=== PATIENT | male | born 1950 | race Caucasian/White ===

== ENCOUNTER 2020-07-02 16:55 | Emergency (ER) | payer BC, MEDICARE ==
[2020-07-02 19:05] LABS: BLOOD UREA NITROGEN,BUN 19 mg/dL (7.0-18.0); CARBON DIOXIDE,CO2 24.2 mmol/L (21.0-32.0); CHLORIDE,CL 104 mmol/L (98-107); GLUCOSE RANDOM 166 mg/dL (74-106); POTASSIUM,K 4.1 mmol/L (3.5-5.1); SODIUM,NA 139 mmol/L (136-148)
--- NOTE | 2020-07-02 20:08 | EDM.PDOC ---
ED HPI GENERAL MEDICAL PROBLEM - General Chief Complaint: Skin Complaint Stated Complaint: LEFT NECK INFECTION Time Seen by Provider: 07/02/20 16:57 Source of Information: Reports: Patient History Limitations: Reports: No Limitations - History of Present Illness INITIAL COMMENTS - FREE TEXT/NARRATIVE: HISTORY AND PHYSICAL: History of present illness: Patient is a 70-year-old male who presents to the ED today as his primary care provider told him to come to the emergency room for further evaluation after a CT scan of his neck. Patient states 8 days ago he had a carotid endarterectomy on the left done at [facility] by Dr. Cain Ledbetter, vascular surgeon. Patient states that he went to his primary care provider today for an incision evaluation following the surgery. Patient states that his primary care provider felt the incision was more swollen than it should be so did some basic lab work at the clinic and then sent him to our facility to recent see the CT scan of his neck. Patient states that a few hours after the scan was completed, his primary care provider called him back stating he needed to come to the emergency room for further evaluation. Patient states that following the surgery, he has not had any issues with the side of his neck and did not realize that the swelling was unusual. Patient denies any fevers, increased pain of the area, increased swelling of the area, redness, or drainage from the incision site. Patient states that he thought he was healing appropriately until he went to his appointment with his primary care provider today. Patient was told that he has a concern for an infection in his neck so came here for further evaluation. Patient denies any other symptoms or concerns. Patient denies fever, chills, chest pain, shortness of breath, or cough. Denies headache, neck stiff ness, change in vision, syncope, or near syncope. Denies nausea, vomiting, abdominal pain, diarrhea, constipation, or dysuria. Has not noted any blood in urine or stool. Patient has been eating and drinking appropriately. Review of systems: As per history of present illness and below otherwise all systems reviewed and negative. Past medical history: As per history of present illness and as reviewed below otherwise noncontributory. Surgical history: As per history of present illness and as reviewed below otherwise noncontributory. Social history: See social history for further information Family history: As per history of present illness and as reviewed below otherwise noncontributory. Physical exam: General: Patient is alert, oriented, and in no acute distress. Patient sitting comfortably on exam table. HEENT: There is a large incision on the left lateral neck that is well-healing without erythema, drainage, increased temperature, or pain to palpation. Incision is consistent with recent surgical history and appears to be healing well. Underlying the incision is an area of moderate edema which is nontender to palpation. Otherwise, atraumatic, normocephalic, pupils equal and reactive bilaterally, negative for conjunctival pallor or scleral icterus, mucous membranes moist, TMs normal bilaterally, throat clear, neck supple, nontender, trachea midline. No drooling or trismus noted. No meningeal signs. No hot potato voice noted. Lungs: Clear to auscultation, breath sounds equal bilaterally, chest nontender. Heart: S1S2, regular rate and rhythm without overt murmur Abdomen: Soft, nondistended, nontender. Negative for masses or hepatosplenomegaly. Negative for costovertebral tenderness. Pelvis: Stable nontender. Genitourinary: Deferred. Rectal: Deferred. Skin: Intact, warm, dry. No lesions or rashes noted. Extremities: Atraumatic, negative for cords or calf pain. Neurovascular unremarkable. Neuro: Awake, alert, oriented. Cranial nerves II through XII unremarkable. Cerebellum unremarkable. Motor and sensory unremarkable throughout. Exam nonfocal. Notes: Patient did have a Ang CT that was ordered/performed by his primary care provider, Dr. Perez today. This was performed at our facility today so is able to be accessed for full report. The Ang CT neck shows status post recent left carotid endarterectomy with widely patent graft. Within the subcutaneous tissue overlying the endarterectomy site, anterior to the left sternocleidomastoid muscle, there is a 5 cm x 3 cm x 2 cm fluid collection with foci of gas that is concerning for an early abscess. I did call and speak to the vascular surgeon on-call for [facility], Arcelia Chris, and thoroughly discussed patient's case. She has personally reviewed patient's CT scans of his neck and lab work and states that she does not feel that this is a developing abscess and believes it to be a hematoma. She states that she will be talking with patient's vascular surgeon, Dr. Ledbetter tomorrow morning, but does not feel that patient needs to be admitted or transferred at this time. She states that their clinic will call patient Sunday morning for reevaluation of his symptoms and follow-up as needed. Voices understanding and is agreeable to plan of care. Denies any further questions or concerns at this time. Diagnostics: CBC, CMP Therapeutics: None Prescription: None Impression: Post op hematoma, day 8 Plan: 1. You can take Tylenol as directed for pain and discomfort. 2. Follow-up with your vascular surgeon as discussed. They will be calling you Sunday for additional follow-up. 3. Return to the ED as needed and as discussed. Definitive disposition and diagnosis as appropriate pending reevaluation and rev iew of above. - Related Data Allergies Allergy/AdvReac Type Severity Reaction Status Date / Time No Known Allergies Allergy Verified 07/02/20 17:45 Home Meds: Home Meds Clopidogrel [Plavix] 75 mg PO DAILY 07/02/20 [History] Isosorbide Mononitrate [Imdur] 60 mg PO BID 07/02/20 [History] Krill Oil/[place]-3/Dha/Epa [[place]-3 Krill Oil Softgel] 500 mg PO DAILY 07/02/20 [History] Metoprolol Tartrate [Lopressor] 50 mg PO Q12HR 07/02/20 [History] Pantoprazole Sodium [Protonix] 20 mg PO DAILY 07/02/20 [History] Prazosin HCl [Prazosin] 2 mg PO BEDTIME 07/02/20 [History] Tiotropium [place] [Spiriva Respimat] 2 puff INH DAILY 07/02/20 [History] amLODIPine [Norvasc] 5 mg PO BID 07/02/20 [History] atorvaSTATin [Lipitor] 80 mg PO BEDTIME 07/02/20 [History] metFORMIN [Glucophage] 1,000 mg PO BIDMEALS 07/02/20 [History] traZODone HCl [Trazodone HCl] 50 mg PO BEDTIME PRN 07/02/20 [History] Past Medical History HEENT History: Reports: Hard of Hearing, Impaired Vision Cardiovascular History: Reports: High Cholesterol, Hypertension, Stents, Other (See Below) Other Cardiovascular History: 5 way bypass. Respiratory History: Reports: COPD Gastrointestinal History: Reports: GERD Psychiatric History: Reports: Anxiety, Depression Endocrine/Metabolic History: Reports: Diabetes, Type II, Obesity/BMI 30+ - Infectious Disease History Infectious Disease History: Reports: Chicken Pox - Past Surgical History HEENT Surgical History: Reports: None Cardiovascular Surgical History: Reports: None Respiratory Surgical History: Reports: None GI Surgical History: Reports: None Endocrine Surgical History: Reports: None Social & Family History - Family History Family Medical History: No Pertinent Family History - Tobacco Use Tobacco Use Status *Q: Former Tobacco User Used Tobacco, but Quit: Yes Month/Year Tobacco Last Used: 30 years ago - Caffeine Use Caffeine Use: Reports: None - Recreational Drug Use Recreational Drug Use: No ED ROS GENERAL - Review of Systems Review Of Systems: Comprehensive ROS is negative, except as noted in HPI. ED EXAM, SKIN/RASH Exam: See Below (see dictation) Course - Vital Signs Last Recorded V/S: Last Vital Signs Temp 99 F 07/02/20 17:41 Pulse 75 07/02/20 17:41 Resp 16 07/02/20 17:41 BP 159/76 H 07/02/20 17:41 Pulse Ox 98 07/02/20 17:41 - Orders/Labs/Meds Labs: Laboratory Tests 07/02/20 07/02/20 Range/Units 18:40 18:40 WBC 6.25 (4.0-11.0) K/uL RBC 4.49 L (4.50-5.90) M/uL Hgb 12.0 L (13.0-17.0) g/dL Hct 38.1 (38.0-50.0) % MCV 84.9 (80.0-98.0) fL MCH 26.7 L (27.0-32.0) pg MCHC 31.5 (31.0-37.0) g/dL RDW Std Deviation 46.1 (28.0-62.0) fl RDW Coeff of Rasheed 15 (11.0-15.0) % Plt Count 169 (150-400) K/uL MPV 10.60 (7.40-12.00) fL Neut % (Auto) 59.5 (48.0-80.0) % Lymph % (Auto) 25.3 (16.0-40.0) % [place] % (Auto) 13.1 (0.0-15.0) % Eos % (Auto) 1.8 (0.0-7.0) % Baso % (Auto) 0.3 (0.0-1.5) % Neut # (Auto) 3.7 (1.4-5.7) K/uL Lymph # (Auto) 1.6 (0.6-2.4) K/uL [place] # (Auto) 0.8 (0.0-0.8) K/uL Eos # (Auto) 0.1 (0.0-0.7) K/uL Baso # (Auto) 0.0 (0.0-0.1) K/uL Nucleated RBC % 0.0 /100WBC Nucleated RBCs # 0 K/uL Sodium 139 (136-148) mmol/L Potassium 4.1 (3.5-5.1) mmol/L Chloride 104 (98-107) mmol/L Carbon Dioxide 24.2 (21.0-32.0) mmol/L BUN 19 H (7.0-18.0) mg/dL Creatinine 1.2 (0.8-1.3) mg/dL Est Cr Clr Drug Dosing 53.17 mL/min Estimated GFR (MDRD) > 60.0 ml/min Glucose 166 H (74-106) mg/dL Calcium 8.9 (8.5-10.1) mg/dL Total Bilirubin 1.2 H (0.2-1.0) mg/dL AST 19 (15-37) IU/L ALT 28 (14-63) IU/L Alkaline Phosphatase 79 (46-116) U/L Total Protein 7.3 (6.4-8.2) g/dL Albumin 3.4 (3.4-5.0) g/dL Globulin 3.9 (2.6-4.0) g/dL Albumin/Globulin Ratio 0.9 (0.9-1.6) Departure - Departure Time of Disposition: 20:01 Disposition: Home, Self-Care 01 Clinical Impression: Postoperative hematoma Qualifiers: Surgical complication system/body Area: subcutaneous tissue Procedure type: non-dermatologic Qualified Code(s): L76.32 - Postprocedural hematoma of skin and subcutaneous tissue following other procedure - Discharge Information Instructions: Contusion Referrals: Bobby Perez MD [Primary Care Provider] - Forms: ED Department Discharge Additional Instructions: The following information is given to patients seen in the emergency department who are being discharged to home. This information is to outline your options for follow-up care. We provide all patients seen in our emergency department with a follow-up referral. The need for follow-up, as well as the timing and circumstances, are variable depending upon the specifics of your emergency department visit. If you don't have a primary care physician on staff, we will provide you with a referral. We always advise you to contact your personal physician following an emergency department visit to inform them of the circumstance of the visit and for follow-up with them and/or the need for any referrals to a consulting specialist. The emergency department will also refer you to a specialist when appropriate. This referral assures that you have the opportunity for follow-up care with a specialist. All of these measure are taken in an effort to provide you with optimal care, which includes your follow-up. Under all circumstances we always encourage you to contact your private physician who remains a resource for coordinating your care. When calling for follow-up care, please make the office aware that this follow-up is from your recent emergency room visit. If for any reason you are refused follow-up, please contact the [facility] at and asked to speak to the emergency department charge nurse. [facility] [address] [place] [id number] [facility] [address] [place] [id number] 1. You can take Tylenol as directed for pain and discomfort. 2. Follow-up with your vascular surgeon as discussed. They will be calling you Sunday morning for additional follow-up. 3. Return to the ED as needed and as discussed. Sepsis Event Note (ED) - Evaluation Sepsis Screening Result: No Definite Risk - Focused Exam Vital Signs: Vital Signs Temp Pulse Resp BP Pulse Ox 07/02/20 17:41 99 F 75 16 159/76 H 98
== END 2020-07-02 20:14 | disposition home or self-care (01) ==
LOC: MW.ED 16:55
DX: L76.32 Postprocedural hematoma of skin and subcutaneous tissue following other procedure (principal); E78.00 Pure hypercholesterolemia, unspecified; I10 Essential (primary) hypertension; J44.9 Chronic obstructive pulmonary disease, unspecified; K21.9 Gastro-esophageal reflux disease without esophagitis; E11.9 Type 2 diabetes mellitus without complications; E66.9 Obesity, unspecified; Z87.891 Personal history of nicotine dependence; Z68.31 Body mass index [BMI] 31.0-31.9, adult; Z79.02 Long term (current) use of antithrombotics/antiplatelets; Z79.899 Other long term (current) drug therapy; Z79.84 Long term (current) use of oral hypoglycemic drugs; Z95.1 Presence of aortocoronary bypass graft
CPT/HCPCS: 36415; 80053; 85025; 99283